=== PATIENT | female | born 1980 | race Caucasian/White ===

== ENCOUNTER 2018-07-19 19:10 | Emergency (ER) | payer OTHER ==
[2018-07-19 19:24] VITALS: BP 153/90; PULSE 60; TEMP 98.9; BMI 22.1
--- NOTE | 2018-07-19 19:40 | PDOC ---
History of Present Illness - General Chief Complaint: Cold Symptoms Stated Complaint: COUGH Time Seen by Provider: 07/19/18 19:36 - History of Present Illness Initial Comments: 38-year-old female without comorbidities present for evaluation of cough and nasal congestion 7 days no fever. 07/19/18 19:39 Past History - Past Medical History Allergies/Adverse Reactions: Allergies Allergy/AdvReac Type Severity Reaction Status Date / Time No Known Allergies Allergy Verified 07/19/18 19:24 Home Medications: Ambulatory Orders NK [No Known Home Medication] 07/19/18 Anemia: No COPD: No - Surgical History Abdominal Surgery: No - Immunization History Immunization Up to Date: Yes - Suicide/Smoking/Psychosocial Hx Smoking Status: No Smoking History: Never smoked Number of Cigarettes Smoked Daily: 0 Hx Alcohol Use: No Substance Use Type: None Review of Systems - Review of Systems HEENTM: Yes: Nose Congestion Respiratory: Yes: Cough All Other Systems: Reviewed and Negative *Physical Exam - Vital Signs Last Vital Signs Temp Pulse Resp BP Pulse Ox 98.9 F 60 18 153/90 100 07/19/18 19:22 07/19/18 19:22 07/19/18 19:22 07/19/18 19:22 07/19/18 19:22 - Physical Exam Comments: 07/19/18 19:39 HEAD: NC/AT EYES: Conjuntiva clear Ears: Canals and TM's normal NOSE: No d/c THROAT: Moist mucous membrances, oral pharanx clear, uvula midline NECK: Supple without adenopathy CARDIAC: S1 S2 LUNGS: CTA Full and Equal breath sounds ABDOMEN: Soft NT ND MS: Full ROM in all joints without edema NEUROLOGIC: No gross sensory or motor deficits, NVID SKIN: Normal color and temperature no lesions or rashes Medical Decision Making - Medical Decision Making 07/19/18 19:39 Supportive care for an upper respiratory infection and his healthy 38-year-old female *DC/Admit/Observation/Transfer Diagnosis at time of Disposition: URI (upper respiratory infection) - Discharge Dispostion Disposition: HOME Condition at time of disposition: Stable Decision to Admit order: No - Referrals - Patient Instructions Printed Discharge Instructions: DI for Viral Upper Respiratory Infection -- Adult Additional Instructions: Return to the emergency room should symptoms worsen or go unresolved. May take Robitussin as directed for cough follow-up with your primary care physician one to 2 days for further evaluation and treatment options. - Post Discharge Activity
== END 2018-07-19 19:42 | disposition home or self-care (01) ==
LOC: JERFT 19:10
DX: J06.9 Acute upper respiratory infection, unspecified (principal)
CPT/HCPCS: 99281-25

== ENCOUNTER 2018-11-15 18:42 | Emergency (ER) | payer OTHER ==
--- NOTE | 2018-11-15 18:49 | PDOC ---
Rapid Medical Evaluation Chief Complaint: Rash Time Seen by Provider: 11/15/18 18:47 Medical Evaluation: Allergies Allergy/AdvReac Type Severity Reaction Status Date / Time No Known Allergies Allergy Verified 07/19/18 19:24 11/15/18 18:47 I have performed a brief in-person evaluation of this patient. The patient presents with a chief complaint of: shingles outbreak. Patient reports history of shingles, states noted rash to left buttocks with pain Pertinent physical exam findings: NAD even and unlabored breathing cluster of open sores to right buttocks I have ordered the following: urine preg The patient will proceed to the ED for further evaluation. Discharge Disposition - Diagnosis Shingles - Referrals - Patient Instructions - Post Discharge Activity
[2018-11-15 18:50] VITALS: BP 154/80; PULSE 64; TEMP 98.7; BMI 22.1
--- NOTE | 2018-11-15 19:14 | PDOC ---
History of Present Illness - General Chief Complaint: Rash Stated Complaint: SHINGLES LEFT BACK Time Seen by Provider: 11/15/18 18:47 - History of Present Illness Initial Comments: 11/15/18 19:12 38-year-old female without comorbidities presents for evaluation of a new painful rash on her left buttocks which started today without systemic symptoms. Past History - Past Medical History Allergies/Adverse Reactions: Allergies Allergy/AdvReac Type Severity Reaction Status Date / Time No Known Allergies Allergy Verified 07/19/18 19:24 Home Medications: Ambulatory Orders Acyclovir [Zovirax -] 200 mg PO 5XD 5 Days #25 capsule 11/15/18 Anemia: No COPD: No Other medical history: shingles - Surgical History Abdominal Surgery: No Neurologic Surgery: No - Immunization History Immunization Up to Date: Yes - Suicide/Smoking/Psychosocial Hx Smoking Status: No Smoking History: Never smoked Have you smoked in the past 12 months: No Number of Cigarettes Smoked Daily: 0 Information on smoking cessation initiated: No Hx Alcohol Use: No Drug/Substance Use Hx: No Substance Use Type: None Review of Systems - Review of Systems Constitutional: No: Fever Integumentary: Yes: Rash *Physical Exam - Vital Signs Last Vital Signs Temp Pulse Resp BP Pulse Ox 98.7 F 64 18 154/80 99 11/15/18 18:46 11/15/18 18:46 11/15/18 18:46 11/15/18 18:46 11/15/18 18:46 - Physical Exam Comments: 11/15/18 19:12 HEAD: NC/AT EYES: Conjuntiva clear MS: Full ROM in all joints without edema NEUROLOGIC: No gross sensory or motor deficits, NVID SKIN: Normal color and temperature there is a vesicular lesion on the left buttocks around the area of S1 or S2 extending laterally. Moderate Sedation - Procedure Monitoring Vital Signs: Procedure Monitoring Vital Signs Temperature 98.7 F 11/15/18 18:46 Pulse Rate 64 11/15/18 18:46 Respiratory Rate 18 11/15/18 18:46 Blood Pressure 154/80 11/15/18 18:46 O2 Sat by Pulse Oximetry (%) 99 11/15/18 18:46 *DC/Admit/Observation/Transfer Diagnosis at time of Disposition: Shingles - Discharge Dispostion Disposition: HOME Condition at time of disposition: Stable Decision to Admit order: No - Prescriptions Prescriptions: Acyclovir [Zovirax -] 200 mg PO 5XD 5 Days #25 capsule - Referrals Referrals: Sharon Ann MD [Primary Care Provider] - - Patient Instructions Printed Discharge Instructions: [facility] for Shingles Additional Instructions: Please take the medication as directed. Return to the emergency room for worsening of symptoms. Tylenol Motrin as directed for pain. Follow-up with your primary care physician in one to 2 days for further evaluation and treatment options. - Post Discharge Activity
== END 2018-11-15 19:15 | disposition home or self-care (01) ==
LOC: JERFT 18:42
DX: B02.9 Zoster without complications (principal)
CPT/HCPCS: 99281-25